=== PATIENT | male | born 1960 | race Caucasian/White ===

== ENCOUNTER 2025-08-07 15:12 | Emergency (ER) | payer OTHER, SELFPAY ==
[2025-08-07 15:24] VITALS: BP 141/74
[2025-08-07 16:00] VITALS: BP 118/64
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
== END 2025-08-07 19:09 ==
LOC: EMR 15:12
PROVIDERS: EMERGENCY PHYSICIAN Emergency Medicine
DX: S02.2XXA Fracture of nasal bones, initial encounter for closed fracture (principal); S00.33XA Contusion of nose, initial encounter; Y04.2XXA Assault by strike against or bumped into by another person, initial encounter; Y92.149 Unspecified place in prison as the place of occurrence of the external cause
CPT/HCPCS: 99284; 70450; 70486; 72125